=== PATIENT | female | born 1945 ===

== ENCOUNTER 2021-08-16 10:56 | Inpatient (IN) ==
[~2021-08-16 10:56] MED LIST: Buffered Lidocaine 1% SYRIN 1 ml INTRADERM ONE; DiMENhydriNATE IV 50 mg/ml 1 ml VIAL IV PUSH ONE; DiMENhydriNATE IV 50 mg/ml 1 ml VIAL ONE; HYDROcodone/ACETAMIN 5/325 mg TAB PO PRN; Lactated Ringers 1000 ml BAG 1,000 ML IV SCH; Metoclopramide 5 MG/ML VIAL (10 mg) IV PRN; Naloxone 0.4 mg VIAL 0.4 mg/ml 1 ml VIAL IV PRN; Ondansetron 4 mg VIAL 2 MG/ML 2 ml VIAL IV PRN; ceFAZolin 2 GM in NS PREMIX 2 GM/100 ML BAG IVPB ONE; fentaNYL 100 mcg/2 ml 50 MCG/ML VIAL IV PRN
[2021-08-16] MEDS ORDERED: Midazolam 2 mg/2 ml VIAL 1 mg/ml 2 ml VIAL (2 mg) ONE (12:31)
[2021-08-16] MEDS ORDERED: Ketamine HCL 50 mg/ml 10 ml VIAL (500 MG) ONE (14:16)
[2021-08-16] MEDS ORDERED: Glycopyrrolate IV 0.2 MG/ML 1 ML VIAL ONE (15:28)
[2021-08-16] MEDS ORDERED: Ondansetron 4 mg VIAL 2 MG/ML 2 ml VIAL ONE (15:44)
[2021-08-16] MEDS ORDERED: Ondansetron 4 mg VIAL 2 MG/ML 2 ml VIAL IV PRN (16:19)
[2021-08-16] MEDS ORDERED: Ondansetron ODT 4 mg TAB 4 MG TAB PO PRN (16:19)
[2021-08-16] MEDS ORDERED: diPHENhydraMINE 25 mg TAB PO PRN (16:19)
[2021-08-16] MEDS ORDERED: Morphine 2 MG/ML SYRINGE IV PRN (16:19)
[2021-08-16] MEDS ORDERED: Magnesium Hydroxide LIQ 30 ML UDC PO PRN (16:19)
[2021-08-16] MEDS ORDERED: diPHENhydraMINE IV 50 MG/ML 1 ml VIAL (BENADRYL) IV PRN (16:19)
[2021-08-16] MEDS ORDERED: Lactulose 30 ml UDC PO PRN (16:19)
[2021-08-16] MEDS ORDERED: HYDROcodone/ACETAMIN 5/325 mg TAB ONE (17:20)
[2021-08-16] MEDS: Lactated Ringers 1000 ml BAG 1,000 ML IV SCH (18:22)
[2021-08-16] MEDS: Magnesium Hydroxide LIQ 30 ML UDC PO SCH (20:02)
[2021-08-16] MEDS: ceFAZolin 1 GM ADVAN 1 GM in NS 0.9% 50 ML 50 ML IVPB SCH (21:53)
[2021-08-17] MEDS: ceFAZolin 1 GM ADVAN 1 GM in NS 0.9% 50 ML 50 ML IVPB SCH ×2 (05:21→13:51)
[2021-08-17 06:41] LABS: Hematocrit 39 % (35-47); Hemoglobin 13.2 g/dL (12.0-16.0); Mean Platelet Volume 7.6 fL (7.4-10.4); Platelet Count 235 10^3/uL (150-450)
[2021-08-17] MEDS: Lactated Ringers 1000 ml BAG 1,000 ML IV SCH (06:48)
[2021-08-17 07:05] LABS: Calcium 8.7 mg/dL (8.6-10.3); Potassium 4.2 mmol/L (3.5-5.0)
[2021-08-17] MEDS: Magnesium Hydroxide LIQ 30 ML UDC PO SCH (08:11)
[2021-08-17] MEDS ORDERED: Vitamin THERAPEUTIC TAB PO SCH (09:00)
[2021-08-17 11:53] VITALS: BP 137/75
== END 2021-08-17 15:20 | disposition home health service (06) | DRG 470 ==
LOC: AA 10:56 → SSU 18:02
PROVIDERS: ADMIT Orthopaedic Surgery Adult Reconstructive Orthopaedic Surgery; ATTEND Orthopaedic Surgery Adult Reconstructive Orthopaedic Surgery